=== PATIENT | female | born 1990 | race Caucasian/White ===

== ENCOUNTER 2019-12-13 12:20 | Emergency (ER) | payer BC ==
[2019-12-13] MEDS ORDERED: Carbamide Peroxide 6.5% Otic Soln 15 ML Bottle EARRT ONE (13:00)
--- NOTE | 2019-12-13 13:05 | EDM.PDOC ---
ED HPI GENERAL MEDICAL PROBLEM - General Chief Complaint: General Stated Complaint: NAUSEA,COUGH,FEVER Time Seen by Provider: 12/13/19 12:45 Source of Information: Reports: Patient History Limitations: Reports: No Limitations - History of Present Illness INITIAL COMMENTS - FREE TEXT/NARRATIVE: HISTORY AND PHYSICAL: History of present illness: She is a 29-year-old female who presents to the ED today with concern of sore throat, generalized body aches, and right ear pain over the last 3 to 4 days. Patient states she is approximately 17 weeks in gestation and took Tylenol approximately 3 hours before coming to the ED. Patient denies any vaginal bleeding or lower abdominal cramping. Patient denies any other symptoms or concerns. Patient denies fever, chills, chest pain, shortness of breath, or cough. Denies headache, neck stiff ness, change in vision, syncope, or near syncope. Denies nausea, vomiting, abdominal pain, diarrhea, constipation, or dysuria. Has not noted any blood in urine or stool. Patient has been eating and drinking appropriately. Review of systems: As per history of present illness and below otherwise all systems reviewed and negative. Past medical history: As per history of present illness and as reviewed below otherwise noncontributory. Surgical history: As per history of present illness and as reviewed below otherwise noncontributory. Social history: See social history for further information Family history: As per history of present illness and as reviewed below otherwise noncontributory. Physical exam: General: Patient is alert, oriented, and in no acute distress. Patient sitting comfortably on exam table. HEENT: Atraumatic, normocephalic, pupils equal and reactive bilaterally, negative for conjunctival pallor or scleral icterus, mucous membranes moist, Left TM is normal, unable to visualize the right TM due to cerumen impaction, throat clear, neck supple, nontender, trachea midline. No drooling or trismus noted. No meningeal signs. No hot potato voice noted. Lungs: Clear to auscultation, breath sounds equal bilaterally, chest nontender. Heart: S1S2, regular rate and rhythm without overt murmur Abdomen: Soft, nondistended, nontender. Negative for masses or hepatosplenomegaly. Negative for costovertebral tenderness. Pelvis: Stable nontender. Genitourinary: Deferred. Rectal: Deferred. Skin: Intact, warm, dry. No lesions or rashes noted. Extremities: Atraumatic, negative for cords or calf pain. Neurovascular unremarkable. Neuro: Awake, alert, oriented. Cranial nerves II through XII unremarkable. Cerebellum unremarkable. Motor and sensory unremarkable throughout. Exam nonfocal. Notes: Was unable to visualize the TM even after saline irrigation with Debrox. Did offer Colace with saline irrigation but patient declines at this time. Patient states she would prefer to use Debrox at home to try to soften up the wax and follow-up with an ENT specialist. Voices understanding and is agreeable to plan of care. Denies any further questions or concerns at this time. Diagnostics: Influenza, Strep Therapeutics: Debrox w saline irrigation Prescription: Debrox (sent home with from ED) Impression: Cerumen impaction, right Plan: 1. Use the Debrox drops that have been sent home with you as directed and as discussed. 2. You can use Tylenol as directed for pain and discomfort. This is safe to use in . 3. Follow-up with the ENT specialist and a primary care provider as discussed. Return to the ED as needed and as discussed. Definitive disposition and diagnosis as appropriate pending reevaluation and review of above. - Related Data Allergies Allergy/AdvReac Type Severity Reaction Status Date / Time Sulfa (Sulfonamide Allergy Hives Verified 12/13/19 12:42 Antibiotics) Home Meds: Home Meds Pnv No.95/Ferrous Fum/Folic AC [ Caplet] 1 each PO DAILY 12/13/19 [ History] Past Medical History - Past Health History Medical/Surgical History: Denies Medical/Surgical History - Infectious Disease History Infectious Disease History: Reports: None Social & Family History - Family History Family Medical History: Noncontributory - Tobacco Use Smoking Status *Q: Former Smoker Used Tobacco, but Quit: Yes Month/Year Tobacco Last Used: 2018 - Caffeine Use Caffeine Use: Reports: Coffee - Recreational Drug Use Recreational Drug Use: No ED ROS GENERAL - Review of Systems Review Of Systems: Comprehensive ROS is negative, except as noted in HPI. ED EXAM, GENERAL - Physical Exam Exam: See Below (see dictation) Course - Vital Signs Last Recorded V/S: Last Vital Signs Temp 96.6 F L 12/13/19 12:42 Pulse 64 12/13/19 12:42 Resp 18 12/13/19 12:42 BP 119/67 03/02/20 12:42 Pulse Ox 96 12/13/19 12:42 - Orders/Labs/Meds Orders: Active Orders 24 hr Category Date Time Status CULTURE STREP A CONFIRMATION [] Stat Lab 12/13/19 12:47 Results STREP SCRN A RAPID W CULT CONF [] Stat Lab 12/13/19 12:47 Results Meds: Medications Discontinued Medications Generic Name Dose Route Start Last Admin Trade Name Freq PRN Reason Stop Dose Admin Carbamide Perox/Anhydrous Glycerin 5 ml 12/13/19 13:00 12/13/19 13:21 Debrox 6.5% Otic Soln EARRT 12/13/19 13:01 1 applic ONETIME ONE Administration Departure - Departure Time of Disposition: 14:13 Disposition: Home, Self-Care 01 Clinical Impression: Impacted cerumen of right ear - Discharge Information Referrals: PCP,None [Primary Care Provider] - Forms: ED Department Discharge Additional Instructions: The following information is given to patients seen in the emergency department who are being discharged to home. This information is to outline your options for follow-up care. We provide all patients seen in our emergency department with a follow-up referral. The need for follow-up, as well as the timing and circumstances, are variable depending upon the specifics of your emergency department visit. If you don't have a primary care physician on staff, we will provide you with a referral. We always advise you to contact your personal physician following an emergency department visit to inform them of the circumstance of the visit and for follow-up with them and/or the need for any referrals to a consulting specialist. The emergency department will also refer you to a specialist when appropriate. This referral assures that you have the opportunity for follow-up care with a specialist. All of these measure are taken in an effort to provide you with optimal care, which includes your follow-up. Under all circumstances we always encourage you to contact your private physician who remains a resource for coordinating your care. When calling for follow-up care, please make the office aware that this follow-up is from your recent emergency room visit. If for any reason you are refused follow-up, please contact the [facility] Emergency Department at and asked to speak to the emergency department charge nurse. [facility] Primary Care [address] [place] [address] [facility] [address] [place] [address] [facility] Ears, Nose, and Throat Specialist, Dr. Chava Romero [phone] [address] 1. Use the Debrox drops that have been sent home with you as directed and as discussed. 2. You can use Tylenol as directed for pain and discomfort. This is safe to use in . 3. Follow-up with the ENT specialist and a primary care provider as discussed. Return to the ED as needed and as discussed. Sepsis Event Note - Evaluation Sepsis Screening Result: No Definite Risk - Focused Exam Vital Signs: Vital Signs Temp Pulse Resp BP Pulse Ox 12/13/19 12:42 96.6 F L 64 18 119/67 96 Date Exam was Performed: 12/13/19 Time Exam was Performed: 14:11 - My Orders Last 24 Hours: My Active Orders 12/13/19 12:47 CULTURE STREP A CONFIRMATION [RM] Stat STREP SCRN A RAPID W CULT CONF [RM] Stat - Assessment/Plan Last 24 Hours: My Active Orders 12/13/19 12:47 CULTURE STREP A CONFIRMATION [RM] Stat STREP SCRN A RAPID W CULT CONF [RM] Stat
== END 2019-12-13 14:40 | disposition home or self-care (01) ==
LOC: MW.ED 12:20
DX: H61.21 Impacted cerumen, right ear (principal); Z87.891 Personal history of nicotine dependence; Z88.2 Allergy status to sulfonamides
CPT/HCPCS: 87081; 87804; 87880; 99283; A9270

== ENCOUNTER 2020-05-24 00:10 | Inpatient (IN) | payer BC ==
[2020-05-24] MEDS ORDERED: Sodium Chloride 0.9% 2.5 ML Syringe FLUSH PRN (00:15)
[2020-05-24] MEDS ORDERED: Misoprostol 25 MCG (1/4 of 100 MCG) Tab VAG PRN ×2 (00:15)
[2020-05-24] MEDS ORDERED: Sodium Chloride 0.9% 10 ML Syringe FLUSH PRN (00:15)
[2020-05-24] MEDS ORDERED: Terbutaline 1 MG/ML SDV SUBCUT PRN (00:15)
[2020-05-24] MEDS ORDERED: Methylergonovine 0.2 MG/1 ML Amp IM PRN (00:15)
[2020-05-24] MEDS ORDERED: Oxytocin/0.9 % Sodium Chloride 30 UNIT/500 ML BAG IV SCH ×2 (00:15)
[2020-05-24] MEDS ORDERED: Butorphanol 1 MG/ML SDV IVPUSH PRN (00:15)
[2020-05-24] MEDS ORDERED: Nalbuphine 10 MG/1 ML Vial IVPUSH PRN (00:15)
[2020-05-24] MEDS ORDERED: Water For Irrigation,Sterile 1,000 ML Container IRR PRN (00:15)
[2020-05-24] MEDS ORDERED: Carboprost Tromethamine 250 MCG/1 ML Amp IM PRN (00:15)
[2020-05-24] MEDS ORDERED: Sodium Chloride 0.9% 10 ML SDV IV PRN (00:15)
[2020-05-24] MEDS ORDERED: Tranexamic Acid 1,000 MG in Sodium Chloride 0.9% 100 ML IV PRN (00:15)
[2020-05-24] MEDS ORDERED: Misoprostol 200 MCG Tab PO PRN (00:15)
[2020-05-24] MEDS ORDERED: Lidocaine 1% 50 ML MDV INJECT PRN (00:15)
[2020-05-24] MEDS ORDERED: Lactated Ringers 1,000 ML IV SCH (00:15)
[2020-05-24] MEDS ORDERED: Ondansetron 4 MG/2 ML SDV IVPUSH PRN (00:15)
[2020-05-24] MEDS ORDERED: Calcium Carbonate 500 MG Tab.Chew PO PRN (03:19)
[2020-05-24] MEDS ORDERED: fentaNYL 100 MCG/2 ML SDV ONE (08:14)
[2020-05-24] MEDS ORDERED: Ropivacaine HCl/PF 100 ML ONE (08:14)
[2020-05-24] MEDS ORDERED: Ropivacaine 0.2% PF 2 MG/ML 20 ML SDV ONE (08:14)
--- NOTE | 2020-05-24 08:56 | PCM.PREANE ---
Preanesthetic Assessment - Procedure Proposed Procedure: JS - Anesthesia/Transfusion/Family Hx Anesthesia History: Prior Anesthesia Without Reaction Family History of Anesthesia Reaction: No Transfusion History: No Prior Transfusion(s) Intubation History: Unknown - Review of Systems General: No Symptoms Pulmonary: No Symptoms Cardiovascular: No Symptoms Gastrointestinal: No Symptoms Neurological: No Symptoms Other: Reports: Anxiety - Physical Assessment NPO Status Date: 05/24/20 NPO Status Time: 08:53 (Clear Liquids) Height: 1.6 m Weight: 100.698 kg ASA Class: 2 Mental Status: Alert & Oriented x3 Airway Class: Mallampati = 1 Dentition: Reports: Normal Dentition Thyro-Mental Finger Breadths: 3 Mouth Opening Finger Breadths: 3 ROM/Head Extension: Full Lungs: Clear to Auscultation Cardiovascular: Regular Rate - Lab Values: Laboratory Last Values WBC 6.99 K/uL (4.0-11.0) 05/24/20 00:45 RBC 3.39 M/uL (4.30-5.90) L 05/24/20 00:45 Hgb 12.6 g/dL (12.0-16.0) 05/24/20 00:45 Hct 34.7 % (36.0-46.0) L 05/24/20 00:45 MCV 102.4 fL (80.0-98.0) H 05/24/20 00:45 MCH 37.2 pg (27.0-32.0) H 05/24/20 00:45 MCHC 36.3 g/dL (31.0-37.0) 05/24/20 00:45 RDW Std Deviation 46.3 fl (28.0-62.0) 05/24/20 00:45 RDW Coeff of Vipul 13 % (11.0-15.0) 05/24/20 00:45 Plt Count 123 K/uL (150-400) L 05/24/20 00:45 MPV 10.60 fL (7.40-12.00) 05/24/20 00:45 COVID-19 (UDAY) NEGATIVE (NEGATIVE) 05/24/20 00:50 Blood Type O POSITIVE 08 00:45 Antibody Screen NEGATIVE 05/24/20 00:45 - Allergies Allergies/Adverse Reactions: Allergies Allergy/AdvReac Type Severity Reaction Status Date / Time Sulfa (Sulfonamide Allergy Hives Verified 05/24/20 01:09 Antibiotics) - Blood Blood Available: No Product(s) Available: None - Anesthesia Plan Pre-Op Medication Ordered: None - Acknowledgements Anesthesia Type Planned: Epidural Pt an Appropriate Candidate for the Planned Anesthesia: Yes Alternatives and Risks of Anesthesia Discussed w Pt/Guardian: Yes Pt/Guardian Understands and Agrees with Anesthesia Plan: Yes Additional Comments: , active labor. Pain 10/10. Anxious. 8+ cm dilated. Discussed, ? answered, aware of effectiveness due to late labor stage. Accepts, wishes to proceed. PreAnesthesia Questionnaire - Past Health History Medical/Surgical History: Denies Medical/Surgical History UNDERCOVER COP History: Reports: Other (See Below) Other OB/BYN History: [facility] Psychiatric History: Reports: Anxiety, Depression - Infectious Disease History Infectious Disease History: Reports: None - SUBSTANCE USE Smoking Status *Q: Former Smoker Second Hand Smoke Exposure: No Recreational Drug Use History: No - HOME MEDS Home Medications: Home Meds Pnv No.95/Ferrous Fum/Folic AC [ Caplet] 1 each PO DAILY 12/13/19 [History] Ascorbic Acid [Vitamin C] 1,000 mg PO 05/24/20 [History] - CURRENT (IN HOUSE) MEDS Current Meds: Current Medications Butorphanol Tartrate (Stadol) 1 mg IVPUSH Q1H PRN PRN Reason: Pain Calcium Carbonate/Glycine (Tums) 1,000 mg PO Q2HR PRN PRN Reason: Indigestion Last Admin: 05/24/20 05:17 Dose: 1,000 mg Documented by: Carboprost Tromethamine (Hemabate Ds) 250 mcg IM ASDIRECTED PRN PRN Reason: Post Hemorrhage Oxytocin/Sodium Chloride (Oxytocin 30 Unit/500 Ml-Ns) 30 unit in 500 mls @ 999 mls/hr IV TITRATE MARCELA Tranexamic Acid 1,000 mg/ (Sodium Chloride) 110 mls @ 660 mls/hr IV ONETIME PRN PRN Reason: Bleeding Oxytocin/Sodium Chloride (Oxytocin 30 Unit/500 Ml-Ns) 30 unit in 500 mls @ 2 mls/hr IV TITRATE MARCELA; Protocol Lactated Ringer's (Ringers, Lactated) 1,000 mls @ 150 mls/hr IV ASDIRECTED MARCELA Lidocaine HCl (Xylocaine 1%) 50 ml INJECT ONETIME PRN PRN Reason: Laceration repair Methylergonovine Maleate (Methergine) 0.2 mg IM ASDIRECTED PRN PRN Reason: Post Hemorrhage Misoprostol (Cytotec) 200 mcg PO ONETIME PRN PRN Reason: Post Hemorrhage Misoprostol (Cytotec) 25 mcg VAG ONETIME PRN PRN Reason: Cervical Ripening Last Admin: 05/24/20 01:56 Dose: 25 mcg Documented by: Misoprostol (Cytotec) 25 mcg VAG Q4H PRN PRN Reason: Cervical Ripening Last Admin: 05/24/20 05:58 Dose: 25 mcg Documented by: Nalbuphine HCl (Nubain) 10 mg IVPUSH Q1H PRN PRN Reason: Pain (severe 7-10) Ondansetron HCl (Zofran) 4 mg IVPUSH Q6H PRN PRN Reason: Nausea/Vomiting Sodium Chloride (Saline Flush) 10 ml FLUSH ASDIRECTED PRN PRN Reason: Keep Vein Open Sodium Chloride (Saline Flush) 2.5 ml FLUSH ASDIRECTED PRN PRN Reason: Keep Vein Open Sodium Chloride (Normal Saline) 10 ml IV ASDIRECTED PRN PRN Reason: IV Use Sterile Water (Sterile Water For Irrigation) 1,000 ml IRR ASDIRECTED PRN PRN Reason: delivery Terbutaline Sulfate (Brethine) 0.25 mg SUBCUT ASDIRECTED PRN PRN Reason: Tacysystole Discontinued Medications Fentanyl (Sublimaze) Confirm Administered Dose 100 mcg .ROUTE .STK-MED ONE Stop: 05/24/20 08:15 Ropivacaine (Naropin 0.2%) Confirm Administered Dose 100 mls @ as directed .ROUTE .STK-MED ONE Stop: 05/24/20 08:15 Ropivacaine (Naropin 0.2%) Confirm Administered Dose 20 ml .ROUTE .STK-MED ONE Stop: 05/24/20 08:15
[2020-05-24] MEDS ORDERED: Ibuprofen 400 MG Tab PO PRN (09:40)
[2020-05-24] MEDS ORDERED: Docusate Sodium 100 MG Cap PO PRN (09:40)
[2020-05-24] MEDS ORDERED: Bisacodyl 10 MG Supp RECTAL PRN (09:40)
[2020-05-24] MEDS ORDERED: Acetaminophen 500 MG Tab PO PRN (09:40)
[2020-05-24] MEDS ORDERED: oxyCODONE 5 MG Tab PO PRN (09:40)
[2020-05-24] MEDS ORDERED: Lanolin 100% Cream 7 GM Tube TOP PRN (09:40)
--- NOTE | 2020-05-24 09:47 | PCM.DEL ---
<Nalini Fowler A - Last Filed: 05/24/20 09:41> L & D Note - General Info Date of Service: 05/24/20 Mother's Due Date: 05/22/20 - Delivery Note Cervical Ripening Method: Misoprostil Delivery Outcome: Livebirth Infant Delivery Method: Spontaneous Vaginal Delivery-Single Presentation: Left Occiput Transverse (LOT) Nuchal Cord: Present (x1), Reduced Anesthesia Type: Epidural Anesthetic: Lidocaine (Xylocaine) 1% Plain Local Anesthetic Volume: Other (10cc) Episiotomy Type: None Laceration: Vaginal (x2) Suture type: Vicryl Suture size: 3-0 Placenta: Intact, Spontaneous Cord: 3 Vessels Estimated Blood Loss: 300 Resuscitation Needed: No : Bulb Syringe Provider: Maryellen Ashraf Score 1 min: 8 Score 5 min: 9 Second Stage Interventions: Reports: Pushing Effectively Delivery Comments (Free Text/Narrative):: Liveborn male infant born via at 0854 weighing 4700g APGARs 8 and 9 over 2 small vaginal lacerations approximated, progressing well, no known complications - Patient Data Weight - Most Recent: 222 lb Lab Results Last 24 Hours: Laboratory Results - last 24 hr 05/24/20 05/24/20 05/24/20 Range/Units 00:45 00:45 00:50 WBC 6.99 (4.0-11.0) K/uL RBC 3.39 L (4.30-5.90) M/uL Hgb 12.6 (12.0-16.0) g/dL Hct 34.7 L (36.0-46.0) % MCV 102.4 H (80.0-98.0) fL MCH 37.2 H (27.0-32.0) pg MCHC 36.3 (31.0-37.0) g/dL RDW Std Deviation 46.3 (28.0-62.0) fl RDW Coeff of Vipul 13 (11.0-15.0) % Plt Count 123 L (150-400) K/uL MPV 10.60 (7.40-12.00) fL COVID-19 (UDAY) NEGATIVE (NEGATIVE) Blood Type O POSITIVE Antibody Screen NEGATIVE Med Orders - Current: Current Medications Butorphanol Tartrate (Stadol) 1 mg IVPUSH Q1H PRN PRN Reason: Pain Calcium Carbonate/Glycine (Tums) 1,000 mg PO Q2HR PRN PRN Reason: Indigestion Last Admin: 05/24/20 05:17 Dose: 1,000 mg Documented by: Carboprost Tromethamine (Hemabate Ds) 250 mcg IM ASDIRECTED PRN PRN Reason: Post Hemorrhage Oxytocin/Sodium Chloride (Oxytocin 30 Unit/500 Ml-Ns) 30 unit in 500 mls @ 999 mls/hr IV TITRATE MARCELA Tranexamic Acid 1,000 mg/ (Sodium Chloride) 110 mls @ 660 mls/hr IV ONETIME PRN PRN Reason: Bleeding Oxytocin/Sodium Chloride (Oxytocin 30 Unit/500 Ml-Ns) 30 unit in 500 mls @ 2 mls/hr IV TITRATE MARCELA; Protocol Lactated Ringer's (Ringers, Lactated) 1,000 mls @ 150 mls/hr IV ASDIRECTED MARCELA Lidocaine HCl (Xylocaine 1%) 50 ml INJECT ONETIME PRN PRN Reason: Laceration repair Methylergonovine Maleate (Methergine) 0.2 mg IM ASDIRECTED PRN PRN Reason: Post Hemorrhage Misoprostol (Cytotec) 200 mcg PO ONETIME PRN PRN Reason: Post Hemorrhage Misoprostol (Cytotec) 25 mcg VAG ONETIME PRN PRN Reason: Cervical Ripening Last Admin: 05/24/20 01:56 Dose: 25 mcg Documented by: Misoprostol (Cytotec) 25 mcg VAG Q4H PRN PRN Reason: Cervical Ripening Last Admin: 05/24/20 05:58 Dose: 25 mcg Documented by: Nalbuphine HCl (Nubain) 10 mg IVPUSH Q1H PRN PRN Reason: Pain (severe 7-10) Ondansetron HCl (Zofran) 4 mg IVPUSH Q6H PRN PRN Reason: Nausea/Vomiting Sodium Chloride (Saline Flush) 10 ml FLUSH ASDIRECTED PRN PRN Reason: Keep Vein Open Sodium Chloride (Saline Flush) 2.5 ml FLUSH ASDIRECTED PRN PRN Reason: Keep Vein Open Sodium Chloride (Normal Saline) 10 ml IV ASDIRECTED PRN PRN Reason: IV Use Sterile Water (Sterile Water For Irrigation) 1,000 ml IRR ASDIRECTED PRN PRN Reason: delivery Terbutaline Sulfate (Brethine) 0.25 mg SUBCUT ASDIRECTED PRN PRN Reason: Tacysystole Discontinued Medications Fentanyl (Sublimaze) Confirm Administered Dose 100 mcg .ROUTE .STK-MED ONE Stop: 05/24/20 08:15 Ropivacaine (Naropin 0.2%) Confirm Administered Dose 100 mls @ as directed .ROUTE .STK-MED ONE Stop: 05/24/20 08:15 Ropivacaine (Naropin 0.2%) Confirm Administered Dose 20 ml .ROUTE .STK-MED ONE Stop: 05/24/20 08:15 <Shaw Jordan - Last Filed: 05/24/20 22:03> Vacuum Extractor Progress Note - Alternative Labor Strategies Considered Alternative Labor Strategies Considered:: Reports: No - General Info Date of Service: 05/24/20 - Patient Data Vitals - Most Recent: Last Vital Signs Temp 35.9 C L 05/24/20 19:59 Pulse 68 05/24/20 19:59 Resp 17 05/24/20 19:59 BP 122/58 L 05/24/20 19:59 Pulse Ox 97 05/24/20 19:59 Lab Results Last 24 Hours: Laboratory Results - last 24 hr 05/24/20 05/24/20 05/24/20 Range/Units 00:45 00:45 00:50 WBC 6.99 (4.0-11.0) K/uL RBC 3.39 L (4.30-5.90) M/uL Hgb 12.6 (12.0-16.0) g/dL Hct 34.7 L (36.0-46.0) % MCV 102.4 H (80.0-98.0) fL MCH 37.2 H (27.0-32.0) pg MCHC 36.3 (31.0-37.0) g/dL RDW Std Deviation 46.3 (28.0-62.0) fl RDW Coeff of Vipul 13 (11.0-15.0) % Plt Count 123 L (150-400) K/uL MPV 10.60 (7.40-12.00) fL COVID-19 (UDAY) NEGATIVE (NEGATIVE) Blood Type O POSITIVE Antibody Screen NEGATIVE Med Orders - Current: Current Medications Acetaminophen (Tylenol Extra Strength) 500 mg PO Q4H PRN PRN Reason: Pain Acetaminophen (Tylenol Extra Strength) 1,000 mg PO Q4H PRN PRN Reason: Pain Last Admin: 05/24/20 17:48 Dose: 1,000 mg Documented by: Benzocaine/Menthol (Dermoplast Pain Relief 20%-0.5% Reliance) 78 gm TOP ASDIRECTED PRN PRN Reason: Perineal Comfort Measure Last Admin: 05/24/20 13:26 Dose: 1 canister Documented by: Bisacodyl (Dulcolax) 10 mg RECTAL ONETIME PRN PRN Reason: Constipation Butorphanol Tartrate (Stadol) 1 mg IVPUSH Q1H PRN PRN Reason: Pain Calcium Carbonate/Glycine (Tums) 1,000 mg PO Q2HR PRN PRN Reason: Indigestion Last Admin: 05/24/20 05:17 Dose: 1,000 mg Documented by: Carboprost Tromethamine (Hemabate Ds) 250 mcg IM ASDIRECTED PRN PRN Reason: Post Hemorrhage Docusate Sodium (Colace) 100 mg PO BID PRN PRN Reason: Constipation Last Admin: 05/24/20 13:33 Dose: 100 mg Documented by: Emollient Ointment (Lansinoh Hpa) 0 gm TOP ASDIRECTED PRN PRN Reason: Sore Nipples Last Admin: 05/24/20 13:25 Dose: 1 tube Documented by: Oxytocin/Sodium Chloride (Oxytocin 30 Unit/500 Ml-Ns) 30 unit in 500 mls @ 999 mls/hr IV TITRATE MARCELA Last Admin: 05/24/20 08:58 Dose: 999 mls/hr Documented by: Tranexamic Acid 1,000 mg/ (Sodium Chloride) 110 mls @ 660 mls/hr IV ONETIME PRN PRN Reason: Bleeding Oxytocin/Sodium Chloride (Oxytocin 30 Unit/500 Ml-Ns) 30 unit in 500 mls @ 2 mls/hr IV TITRATE [facility]; Protocol Lactated Ringer's (Ringers, Lactated) 1,000 mls @ 150 mls/hr IV ASDIRECTED MARCELA Last Admin: 05/24/20 07:50 Dose: 150 mls/hr Documented by: Ibuprofen (Motrin) 400 mg PO Q4H PRN PRN Reason: Pain Ibuprofen (Motrin) 800 mg PO Q6H PRN PRN Reason: Pain Last Admin: 05/24/20 20:17 Dose: 800 mg Documented by: Lidocaine HCl (Xylocaine 1%) 50 ml INJECT ONETIME PRN PRN Reason: Laceration repair Last Admin: 05/24/20 13:21 Dose: 50 ml Documented by: Methylergonovine Maleate (Methergine) 0.2 mg IM ASDIRECTED PRN PRN Reason: Post Hemorrhage Misoprostol (Cytotec) 200 mcg PO ONETIME PRN PRN Reason: Post Hemorrhage Misoprostol (Cytotec) 25 mcg VAG ONETIME PRN PRN Reason: Cervical Ripening Last Admin: 05/24/20 01:56 Dose: 25 mcg Documented by: Misoprostol (Cytotec) 25 mcg VAG Q4H PRN PRN Reason: Cervical Ripening Last Admin: 05/24/20 05:58 Dose: 25 mcg Documented by: Nalbuphine HCl (Nubain) 10 mg IVPUSH Q1H PRN PRN Reason: Pain (severe 7-10) Ondansetron HCl (Zofran) 4 mg IVPUSH Q6H PRN PRN Reason: Nausea/Vomiting Oxycodone HCl (Oxycodone) 5 mg PO Q2H PRN PRN Reason: Pain Sodium Chloride (Saline Flush) 10 ml FLUSH ASDIRECTED PRN PRN Reason: Keep Vein Open Sodium Chloride (Saline Flush) 2.5 ml FLUSH ASDIRECTED PRN PRN Reason: Keep Vein Open Sodium Chloride (Normal Saline) 10 ml IV ASDIRECTED PRN PRN Reason: IV Use Sterile Water (Sterile Water For Irrigation) 1,000 ml IRR ASDIRECTED PRN PRN Reason: delivery Terbutaline Sulfate (Brethine) 0.25 mg SUBCUT ASDIRECTED PRN PRN Reason: Tacysystole Witch Ewelina (Tucks) 1 pad TOP ASDIRECTED PRN PRN Reason: comfort care Last Admin: 05/24/20 13:25 Dose: 1 tub Documented by: Discontinued Medications Fentanyl (Sublimaze) Confirm Administered Dose 100 mcg .ROUTE .STK-MED ONE Stop: 05/24/20 08:15 Ropivacaine (Naropin 0.2%) Confirm Administered Dose 100 mls @ as directed .ROUTE .STK-MED ONE Stop: 05/24/20 08:15 Ropivacaine (Naropin 0.2%) Confirm Administered Dose 20 ml .ROUTE .STK-MED ONE Stop: 05/24/20 08:15 - Problem List Review Problem List Initiated/Reviewed/Updated: Yes - My Orders Last 24 Hours: My Active Orders 05/24/20 09:40 Patient Status [ADT] Routine May Shower [RC] ASDIRECTED Up ad Ami [RC] ASDIRECTED Vital Signs [RC] PER UNIT ROUTINE Acetaminophen [Tylenol Extra Strength] 1,000 mg PO Q4H PRN Acetaminophen [Tylenol Extra Strength] 500 mg PO Q4H PRN Benzocaine/Menthol [Dermoplast Pain Relief 20%-0.5% Reliance] 78 gm TOP ASDIRECTED PRN Docusate Sodium [Colace] 100 mg PO BID PRN Ibuprofen [Motrin] 400 mg PO Q4H PRN Ibuprofen [Motrin] 800 mg PO Q6H PRN Lanolin [Lansinoh HPA] See Dose Instructions TOP ASDIRECTED PRN bisacodyL [Dulcolax] 10 mg RECTAL ONETIME PRN oxyCODONE 5 mg PO Q2H PRN witch Ewelina [Tucks] 1 pad TOP ASDIRECTED PRN Assess Lochia [WOMSER] Per Unit Routine Assess Uterine Involution [WOMSER] Per Unit Routine Peripheral IV Discontinue [OM.PC] Routine 05/25/20 05:11 HEMOGLOBIN/HEMATOCRIT,HH [HEME] Timed - Assessment Assessment:: 29yo @ 39w2d PPD 0 s/p , complicated by gestational thromobocytopenia. - Plan Plan:: Routine care.
--- NOTE | 2020-05-24 10:32 | PCM.PREANE ---
Preanesthetic Assessment - Procedure Proposed Procedure: JS - Anesthesia/Transfusion/Family Hx Anesthesia History: Prior Anesthesia Without Reaction Family History of Anesthesia Reaction: No Transfusion History: No Prior Transfusion(s) Intubation History: Unknown - Review of Systems General: No Symptoms Pulmonary: No Symptoms Cardiovascular: No Symptoms Gastrointestinal: No Symptoms Neurological: No Symptoms Other: Reports: Anxiety - Physical Assessment NPO Status Date: 05/24/20 NPO Status Time: 08:53 (Clear Liquids) Height: 1.6 m Weight: 100.698 kg ASA Class: 2 Mental Status: Alert & Oriented x3 Airway Class: Mallampati = 2 Dentition: Reports: Normal Dentition ROM/Head Extension: Full Lungs: Clear to Auscultation Cardiovascular: Regular Rate - Lab Values: Laboratory Last Values WBC 6.99 K/uL (4.0-11.0) 05/24/20 00:45 RBC 3.39 M/uL (4.30-5.90) L 08 00:45 Hgb 12.6 g/dL (12.0-16.0) 05/24/20 00:45 Hct 34.7 % (36.0-46.0) L 05/24/20 00:45 MCV 102.4 fL (80.0-98.0) H 05/24/20 00:45 MCH 37.2 pg (27.0-32.0) H 05/24/20 00:45 MCHC 36.3 g/dL (31.0-37.0) 08 00:45 RDW Std Deviation 46.3 fl (28.0-62.0) 05/24/20 00:45 RDW Coeff of Vipul 13 % (11.0-15.0) 05/24/20 00:45 Plt Count 123 K/uL (150-400) L 05/24/20 00:45 MPV 10.60 fL (7.40-12.00) 05/24/20 00:45 COVID-19 (UDAY) NEGATIVE (NEGATIVE) 05/24/20 00:50 Blood Type O POSITIVE 05/24/20 00:45 Antibody Screen NEGATIVE 05/24/20 00:45 - Allergies Allergies/Adverse Reactions: Allergies Allergy/AdvReac Type Severity Reaction Status Date / Time Sulfa (Sulfonamide Allergy Hives Verified 08/12/20 01:09 Antibiotics) - Blood Blood Available: No Product(s) Available: None - Anesthesia Plan Pre-Op Medication Ordered: None - Acknowledgements Anesthesia Type Planned: Epidural Pt an Appropriate Candidate for the Planned Anesthesia: Yes Alternatives and Risks of Anesthesia Discussed w Pt/Guardian: Yes Pt/Guardian Understands and Agrees with Anesthesia Plan: Yes PreAnesthesia Questionnaire - Past Health History Medical/Surgical History: Denies 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 (See Below) Other OB/BYN History: [facility] Psychiatric History: Reports: Anxiety, Depression - Infectious Disease History Infectious Disease History: Reports: None - SUBSTANCE USE Smoking Status *Q: Former Smoker Second Hand Smoke Exposure: No Recreational Drug Use History: No - HOME MEDS Home Medications: Home Meds Pnv No.95/Ferrous Fum/Folic AC [ Caplet] 1 each PO DAILY 12/13/19 [History] Ascorbic Acid [Vitamin C] 1,000 mg PO 05/24/20 [History] - CURRENT (IN HOUSE) MEDS Current Meds: Current Medications Acetaminophen (Tylenol Extra Strength) 500 mg PO Q4H PRN PRN Reason: Pain Acetaminophen (Tylenol Extra Strength) 1,000 mg PO Q4H PRN PRN Reason: Pain Benzocaine/Menthol (Dermoplast Pain Relief 20%-0.5% [place]) 78 gm TOP ASDIRECTED PRN PRN Reason: Perineal Comfort Measure Bisacodyl (Dulcolax) 10 mg RECTAL ONETIME PRN PRN Reason: Constipation Butorphanol Tartrate (Stadol) 1 mg IVPUSH Q1H PRN PRN Reason: Pain Calcium Carbonate/Glycine (Tums) 1,000 mg PO Q2HR PRN PRN Reason: Indigestion Last Admin: 05/24/20 05:17 Dose: 1,000 mg Documented by: Carboprost Tromethamine (Hemabate Ds) 250 mcg IM ASDIRECTED PRN PRN Reason: Post Hemorrhage Docusate Sodium (Colace) 100 mg PO BID PRN PRN Reason: Constipation Emollient Ointment (Lansinoh Hpa) 0 gm TOP ASDIRECTED PRN PRN Reason: Sore Nipples Oxytocin/Sodium Chloride (Oxytocin 30 Unit/500 Ml-Ns) 30 unit in 500 mls @ 999 mls/hr IV TITRATE MARCELA Tranexamic Acid 1,000 mg/ (Sodium Chloride) 110 mls @ 660 mls/hr IV ONETIME PRN PRN Reason: Bleeding Oxytocin/Sodium Chloride (Oxytocin 30 Unit/500 Ml-Ns) 30 unit in 500 mls @ 2 mls/hr IV TITRATE MARCELA; Protocol Lactated Ringer's (Ringers, Lactated) 1,000 mls @ 150 mls/hr IV ASDIRECTED MARCELA Ibuprofen (Motrin) 400 mg PO Q4H PRN PRN Reason: Pain Ibuprofen (Motrin) 800 mg PO Q6H PRN PRN Reason: Pain Lidocaine HCl (Xylocaine 1%) 50 ml INJECT ONETIME PRN PRN Reason: Laceration repair Methylergonovine Maleate (Methergine) 0.2 mg IM ASDIRECTED PRN PRN Reason: Post Hemorrhage Misoprostol (Cytotec) 200 mcg PO ONETIME PRN PRN Reason: Post Hemorrhage Misoprostol (Cytotec) 25 mcg VAG ONETIME PRN PRN Reason: Cervical Ripening Last Admin: 05/24/20 01:56 Dose: 25 mcg Documented by: Misoprostol (Cytotec) 25 mcg VAG Q4H PRN PRN Reason: Cervical Ripening Last Admin: 05/24/20 05:58 Dose: 25 mcg Documented by: Nalbuphine HCl (Nubain) 10 mg IVPUSH Q1H PRN PRN Reason: Pain (severe 7-10) Ondansetron HCl (Zofran) 4 mg IVPUSH Q6H PRN PRN Reason: Nausea/Vomiting Oxycodone HCl (Oxycodone) 5 mg PO Q2H PRN PRN Reason: Pain Sodium Chloride (Saline Flush) 10 ml FLUSH ASDIRECTED PRN PRN Reason: Keep Vein Open Sodium Chloride (Saline Flush) 2.5 ml FLUSH ASDIRECTED PRN PRN Reason: Keep Vein Open Sodium Chloride (Normal Saline) 10 ml IV ASDIRECTED PRN PRN Reason: IV Use Sterile Water (Sterile Water For Irrigation) 1,000 ml IRR ASDIRECTED PRN PRN Reason: delivery Terbutaline Sulfate (Brethine) 0.25 mg SUBCUT ASDIRECTED PRN PRN Reason: Tacysystole Witch Ewelina (Tucks) 1 pad TOP ASDIRECTED PRN PRN Reason: comfort care Discontinued Medications Fentanyl (Sublimaze) Confirm Administered Dose 100 mcg .ROUTE .STK-MED ONE Stop: 05/24/20 08:15 Ropivacaine (Naropin 0.2%) Confirm Administered Dose 100 mls @ as directed .ROUTE .STK-MED ONE Stop: 05/24/20 08:15 Ropivacaine (Naropin 0.2%) Confirm Administered Dose 20 ml .ROUTE .STK-MED ONE Stop: 05/24/20 08:15
[2020-05-24] MEDS: Witch Hazel Medicated Pads 40/Jar TOP PRN (13:25)
--- NOTE | 2020-05-24 13:25 | OR ---
SURGEON: Shaw Jordan MD DATE OF PROCEDURE: 05/24/2020 INDICATION FOR PROCEDURE: A 29-year-old, G4, P 2-0-1-2, at 39 weeks and 2 days admitted for induction of labor. complicated by gestational thrombocytopenia that has been stable, platelets ranging from 120 to 130s. She is GBS negative. She received 2 doses of Cytotec for induction of labor and started having strong regular contractions. She received an epidural with good pain relief. She quickly progressed to fully dilated and +1 station with urge to push. PREOPERATIVE DIAGNOSES: 1. Bone intrauterine at 39 weeks and 2 days. 2. Gestational thrombocytopenia. POSTOPERATIVE DIAGNOSES: 1. Bone intrauterine at 39 weeks and 2 days. 2. Gestational thrombocytopenia. PROCEDURE PERFORMED: Normal spontaneous vaginal delivery, repair of vaginal laceration. ANESTHESIA: Epidural. ANESTHESIOLOGIST: FINDINGS: Viable male , score of 8 and 9, weight of 4700g. Nuchal cord x1. DESCRIPTION OF PROCEDURE: The patient was AROM'd with clear fluid, then began pushing with contractions. She pushed for approximately 5 minutes with good descent. head delivered in OA presentation over intact perineum. The shoulders did not spontaneously rotate and was manually rotated counterclockwise. The head restituted LOT. Tight nuchal cord was noted x1. The anterior shoulder delivered easily followed by posterior shoulder and remaining body. The nuchal cord was reduced after delivery. The baby was placed on maternal chest and evaluated by awaiting nursery staff. The baby was pink, crying, and moving all extremities shortly after delivery. The umbilical cord was clamped and cut after 60 seconds and no longer pulsating. The placenta did not initially deliver. Therefore, attention was turned to examining of the perineum. Two vaginal lacerations were noted. 10 mL of 1% lidocaine without epinephrine was injected for local anesthesia. The lacerations were repaired with 3-0 Vicryl in usual fashion. Hemostasis was confirmed. The placenta then delivered with fundal massage. It was intact with 3-vessel cord. The bleeding was light and the fundus was firm and at the umbilicus. The patient tolerated the procedure well, was given care instructions. CLEMENTINE / RENU /[id number] [facility] SOUTHAMPTON HOSPITALRaimundo
[2020-05-24] MEDS: Benzocaine/Menthol 20%-0.5% Spray 78 GM Cannister TOP PRN (13:26)
[2020-05-24] MEDS: Ibuprofen 800 MG Tab PO PRN ×2 (13:31→20:17)
[2020-05-24] MEDS: Acetaminophen 500 MG Tab PO PRN ×2 (13:32→17:48)
--- NOTE | 2020-05-24 13:47 | PCM48HPAN ---
Post Anesthesia Note - EVALUATION WITHIN 48HRS OF ANESTHETIC Vital Signs in Normal Range: Yes Patient Participated in Evaluation: Yes Respiratory Function Stable: Yes Airway Patent: Yes Cardiovascular Function Stable: Yes Hydration Status Stable: Yes Pain Control Satisfactory: Yes Nausea and Vomiting Control Satisfactory: Yes Mental Status Recovered: Yes - COMMENTS/OBSERVATIONS Free Text/Narrative:: Doing well. No problems noted post.
--- NOTE | 2020-05-24 14:37 | PCM.SN.2 ---
- Free Text/Narrative Note: Visited earlier, doing well. Now complains of body itching. Instructed nurse it should resolve in near future, if no Nubain 2.5 mg IV ordered.
[2020-05-25] MEDS: Ibuprofen 800 MG Tab PO PRN ×3 (02:12→14:36)
[2020-05-25] MEDS: Acetaminophen 500 MG Tab PO PRN ×3 (02:13→14:35)
--- NOTE | 2020-05-25 08:08 | PCM.PNPP ---
<Nalini Fowler - Last Filed: 05/25/20 08:02> - General Info Date of Service: 05/25/20 Admission Dx/Problem (Free Text): 29 yo at 39/2 weeks, IOL for gestational thrombocytopenia Subjective Update: Patient reports abdominal tenderness when she is walking and moving. Pain is rated at 4/10 and occurs only with movement. It is localized to the periumbilical region. She is ambulating, urinating, passing gas. Lochia has been moderate, rubra color, she has changed 5-6 pads since delivery. Has not had a bowel movement yet. okay, baby is figuring out latching. Functional Status: Reports: Tolerating Diet, Ambulating, Urinating Pain Score: 4 - Review of Systems General: Denies: Fever, Weakness, Fatigue, Malaise, Chills HEENT: Reports: No Symptoms Pulmonary: Reports: No Symptoms Cardiovascular: Reports: No Symptoms Gastrointestinal: Reports: Abdominal Pain (Periumbilical ). Denies: Decreased Appetite, Nausea, Vomiting Genitourinary: Reports: No Symptoms Musculoskeletal: Reports: No Symptoms Skin: Reports: No Symptoms Neurological: Reports: No Symptoms Psychiatric: Reports: No Symptoms - General Info Date of Service: 05/25/20 - Patient Data Vital Signs - Most Recent: Last Vital Signs Temp 98.2 F 05/25/20 04:29 Pulse 63 05/25/20 04:29 Resp 17 05/25/20 04:29 BP 115/75 05/25/20 04:29 Pulse Ox 95 05/25/20 04:29 Weight - Most Recent: 100.698 kg Lab Results - Last 24 Hours: Laboratory Results - last 24 hr 05/25/20 Range/Units 05:47 WBC 8.41 (4.0-11.0) K/uL RBC 3.21 L (4.30-5.90) M/uL Hgb 11.6 L (12.0-16.0) g/dL Hct 33.7 L (36.0-46.0) % MCV 105.0 H (80.0-98.0) fL MCH 36.1 H (27.0-32.0) pg MCHC 34.4 (31.0-37.0) g/dL RDW Std Deviation 46.1 (28.0-62.0) fl RDW Coeff of Vipul 13 (11.0-15.0) % Plt Count 103 L (150-400) K/uL MPV 10.50 (7.40-12.00) fL Med Orders - Current: Current Medications Acetaminophen (Tylenol Extra Strength) 500 mg PO Q4H PRN PRN Reason: Pain Acetaminophen (Tylenol Extra Strength) 1,000 mg PO Q4H PRN PRN Reason: Pain Last Admin: 05/25/20 02:13 Dose: 1,000 mg Documented by: Benzocaine/Menthol (Dermoplast Pain Relief 20%-0.5% [place]) 78 gm TOP ASDIRECTED PRN PRN Reason: Perineal Comfort Measure Last Admin: 05/24/20 13:26 Dose: 1 canister Documented by: Bisacodyl (Dulcolax) 10 mg RECTAL ONETIME PRN PRN Reason: Constipation Butorphanol Tartrate (Stadol) 1 mg IVPUSH Q1H PRN PRN Reason: Pain Calcium Carbonate/Glycine (Tums) 1,000 mg PO Q2HR PRN PRN Reason: Indigestion Last Admin: 05/24/20 05:17 Dose: 1,000 mg Documented by: Carboprost Tromethamine (Hemabate Ds) 250 mcg IM ASDIRECTED PRN PRN Reason: Post Hemorrhage Docusate Sodium (Colace) 100 mg PO BID PRN PRN Reason: Constipation Last Admin: 05/24/20 13:33 Dose: 100 mg Documented by: Emollient Ointment (Lansinoh Hpa) 0 gm TOP ASDIRECTED PRN PRN Reason: Sore Nipples Last Admin: 05/24/20 13:25 Dose: 1 tube Documented by: Oxytocin/Sodium Chloride (Oxytocin 30 Unit/500 Ml-Ns) 30 unit in 500 mls @ 999 mls/hr IV TITRATE MARCELA Last Admin: 05/24/20 08:58 Dose: 999 mls/hr Documented by: Tranexamic Acid 1,000 mg/ (Sodium Chloride) 110 mls @ 660 mls/hr IV ONETIME PRN PRN Reason: Bleeding Oxytocin/Sodium Chloride (Oxytocin 30 Unit/500 Ml-Ns) 30 unit in 500 mls @ 2 mls/hr IV TITRATE MARCELA; Protocol Lactated Ringer's (Ringers, Lactated) 1,000 mls @ 150 mls/hr IV ASDIRECTED MARCELA Last Admin: 05/24/20 07:50 Dose: 150 mls/hr Documented by: Ibuprofen (Motrin) 400 mg PO Q4H PRN PRN Reason: Pain Ibuprofen (Motrin) 800 mg PO Q6H PRN PRN Reason: Pain Last Admin: 05/25/20 02:12 Dose: 800 mg Documented by: Lidocaine HCl (Xylocaine 1%) 50 ml INJECT ONETIME PRN PRN Reason: Laceration repair Last Admin: 05/24/20 13:21 Dose: 50 ml Documented by: Methylergonovine Maleate (Methergine) 0.2 mg IM ASDIRECTED PRN PRN Reason: Post Hemorrhage Misoprostol (Cytotec) 200 mcg PO ONETIME PRN PRN Reason: Post Hemorrhage Misoprostol (Cytotec) 25 mcg VAG ONETIME PRN PRN Reason: Cervical Ripening Last Admin: 05/24/20 01:56 Dose: 25 mcg Documented by: Misoprostol (Cytotec) 25 mcg VAG Q4H PRN PRN Reason: Cervical Ripening Last Admin: 05/24/20 05:58 Dose: 25 mcg Documented by: Nalbuphine HCl (Nubain) 10 mg IVPUSH Q1H PRN PRN Reason: Pain (severe 7-10) Ondansetron HCl (Zofran) 4 mg IVPUSH Q6H PRN PRN Reason: Nausea/Vomiting Oxycodone HCl (Oxycodone) 5 mg PO Q2H PRN PRN Reason: Pain Sodium Chloride (Saline Flush) 10 ml FLUSH ASDIRECTED PRN PRN Reason: Keep Vein Open Sodium Chloride (Saline Flush) 2.5 ml FLUSH ASDIRECTED PRN PRN Reason: Keep Vein Open Sodium Chloride (Normal Saline) 10 ml IV ASDIRECTED PRN PRN Reason: IV Use Sterile Water (Sterile Water For Irrigation) 1,000 ml IRR ASDIRECTED PRN PRN Reason: delivery Terbutaline Sulfate (Brethine) 0.25 mg SUBCUT ASDIRECTED PRN PRN Reason: Tacysystole Witch Ewelina (Tucks) 1 pad TOP ASDIRECTED PRN PRN Reason: comfort care Last Admin: 05/24/20 13:25 Dose: 1 tub Documented by: Discontinued Medications Fentanyl (Sublimaze) Confirm Administered Dose 100 mcg .ROUTE .STK-MED ONE Stop: 05/24/20 08:15 Ropivacaine (Naropin 0.2%) Confirm Administered Dose 100 mls @ as directed .ROUTE .STK-MED ONE Stop: 05/24/20 08:15 Ropivacaine (Naropin 0.2%) Confirm Administered Dose 20 ml .ROUTE .STK-MED ONE Stop: 05/24/20 08:15 - Interaction Infant Disposition, : at Bedside Interaction: Holding Infant Feeding: Attempted ; Nursed Fair/Poor (Baby is figuring out latching ) Support Person: Significant Other - Recovery Exam Fundal Tone: Firm Fundal Level: At Umbilicus Fundal Placement: Midline Lochia Amount: Moderate Lochia Color: Rubra/Red Perineum Description: Edematous Episiotomy/Laceration: Approximated Bladder Status: Voiding Urinary Elimination: Voided - Exam General: Alert, Oriented HEENT: Mucous Membr. Moist/[place]. No: Scleral Icterus Neck: Supple, Trachea Midline, No JVD Lungs: Clear to Auscultation, Normal Respiratory Effort. No: Crackles, Wheezing Cardiovascular: Regular Rate, Regular Rhythm. No: No Murmurs GI/Abdominal Exam: Normal Bowel Sounds, Soft, No Organomegaly, No Distention, No Mass, Tender (Point tenderness at uterine fundus) Extremities: Normal Inspection, Normal Range of Motion, Non-Tender, No Pedal Edema, Normal Capillary Refill Skin: Warm, Dry, Intact Neurological: No New Focal Deficit Psy/Mental Status: Alert, Normal Affect, Normal Mood - Problem List & Annotations (1) Encounter for induction of labor SNOMED Code(s): 165303527 Code(s): Z34.90 - ENCNTR FOR SUPRVSN OF NORMAL , UNSP, UNSP TRIMESTER Status: Acute Current Visit: Yes (2) Gestational thrombocytopenia SNOMED Code(s): 181584443 Code(s): O99.119 - OTH DIS OF BLD/BLD-FORM ORG/IMMUN MECHNSM COMP PREG,UNSP TRI; D69.6 - THROMBOCYTOPENIA, UNSPECIFIED Status: Acute Current Visit: Yes (3) LGSIL (low grade squamous intraepithelial dysplasia) SNOMED Code(s): 252600848 Code(s): STY9716 - Status: Acute Current Visit: Yes (4) (normal spontaneous vaginal delivery) SNOMED Code(s): 20515208, 328063771 Code(s): O80 - ENCOUNTER FOR FULL-TERM UNCOMPLICATED DELIVERY Status: Acute Current Visit: Yes - Problem List Review Problem List Initiated/Reviewed/Updated: Yes - Assessment Assessment:: 29yo @ 39w2d PPD 0 s/p , complicated by gestational th romobocytopenia. - Plan Plan:: Routine care - GBS negative - O positive, negative ab screen - Rubella immune - Heb B and C negative - Gestational thrombocytopenia - CBC at 0400; plts at 103, Hgb 11.3 - Discharge home at 24hrs, pending pediatric consult - Discharge instructions to be given at bedside - Pelvic rest x6 weeks - Follow-up in 6 weeks <Maryellen Ashraf - Last Filed: 05/25/20 08:41> - General Info Subjective Update: Agree with assessment - Patient Data Vital Signs - Most Recent: Last Vital Signs Temp 36.8 C 05/25/20 04:29 Pulse 63 05/25/20 04:29 Resp 17 05/25/20 04:29 BP 115/75 05/25/20 04:29 Pulse Ox 95 05/25/20 04:29 Lab Results - Last 24 Hours: Laboratory Results - last 24 hr 05/25/20 Range/Units 05:47 WBC 8.41 (4.0-11.0) K/uL RBC 3.21 L (4.30-5.90) M/uL Hgb 11.6 L (12.0-16.0) g/dL Hct 33.7 L (36.0-46.0) % MCV 105.0 H (80.0-98.0) fL MCH 36.1 H (27.0-32.0) pg MCHC 34.4 (31.0-37.0) g/dL RDW Std Deviation 46.1 (28.0-62.0) fl RDW Coeff of Vipul 13 (11.0-15.0) % Plt Count 103 L (150-400) K/uL MPV 10.50 (7.40-12.00) fL Med Orders - Current: Current Medications Acetaminophen (Tylenol Extra Strength) 500 mg PO Q4H PRN PRN Reason: Pain Acetaminophen (Tylenol Extra Strength) 1,000 mg PO Q4H PRN PRN Reason: Pain Last Admin: 05/25/20 02:13 Dose: 1,000 mg Documented by: Benzocaine/Menthol (Dermoplast Pain Relief 20%-0.5% [place]) 78 gm TOP ASDIRECTED PRN PRN Reason: Perineal Comfort Measure Last Admin: 05/24/20 13:26 Dose: 1 canister Documented by: Bisacodyl (Dulcolax) 10 mg RECTAL ONETIME PRN PRN Reason: Constipation Butorphanol Tartrate (Stadol) 1 mg IVPUSH Q1H PRN PRN Reason: Pain Calcium Carbonate/Glycine (Tums) 1,000 mg PO Q2HR PRN PRN Reason: Indigestion Last Admin: 05/24/20 05:17 Dose: 1,000 mg Documented by: Carboprost Tromethamine (Hemabate Ds) 250 mcg IM ASDIRECTED PRN PRN Reason: Post Hemorrhage Docusate Sodium (Colace) 100 mg PO BID PRN PRN Reason: Constipation Last Admin: 05/24/20 13:33 Dose: 100 mg Documented by: Emollient Ointment (Lansinoh Hpa) 0 gm TOP ASDIRECTED PRN PRN Reason: Sore Nipples Last Admin: 05/24/20 13:25 Dose: 1 tube Documented by: Oxytocin/Sodium Chloride (Oxytocin 30 Unit/500 Ml-Ns) 30 unit in 500 mls @ 999 mls/hr IV TITRATE [facility] Last Admin: 05/24/20 08:58 Dose: 999 mls/hr Documented by: Tranexamic Acid 1,000 mg/ (Sodium Chloride) 110 mls @ 660 mls/hr IV ONETIME PRN PRN Reason: Bleeding Oxytocin/Sodium Chloride (Oxytocin 30 Unit/500 Ml-Ns) 30 unit in 500 mls @ 2 mls/hr IV TITRATE [facility]; Protocol Lactated Ringer's (Ringers, Lactated) 1,000 mls @ 150 mls/hr IV ASDIRECTED MARCELA Last Admin: 05/24/20 07:50 Dose: 150 mls/hr Documented by: Ibuprofen (Motrin) 400 mg PO Q4H PRN PRN Reason: Pain Ibuprofen (Motrin) 800 mg PO Q6H PRN PRN Reason: Pain Last Admin: 05/25/20 02:12 Dose: 800 mg Documented by: Lidocaine HCl (Xylocaine 1%) 50 ml INJECT ONETIME PRN PRN Reason: Laceration repair Last Admin: 05/24/20 13:21 Dose: 50 ml Documented by: Methylergonovine Maleate (Methergine) 0.2 mg IM ASDIRECTED PRN PRN Reason: Post Hemorrhage Misoprostol (Cytotec) 200 mcg PO ONETIME PRN PRN Reason: Post Hemorrhage Misoprostol (Cytotec) 25 mcg VAG ONETIME PRN PRN Reason: Cervical Ripening Last Admin: 05/24/20 01:56 Dose: 25 mcg Documented by: Misoprostol (Cytotec) 25 mcg VAG Q4H PRN PRN Reason: Cervical Ripening Last Admin: 05/24/20 05:58 Dose: 25 mcg Documented by: Nalbuphine HCl (Nubain) 10 mg IVPUSH Q1H PRN PRN Reason: Pain (severe 7-10) Ondansetron HCl (Zofran) 4 mg IVPUSH Q6H PRN PRN Reason: Nausea/Vomiting Oxycodone HCl (Oxycodone) 5 mg PO Q2H PRN PRN Reason: Pain Sodium Chloride (Saline Flush) 10 ml FLUSH ASDIRECTED PRN PRN Reason: Keep Vein Open Sodium Chloride (Saline Flush) 2.5 ml FLUSH ASDIRECTED PRN PRN Reason: Keep Vein Open Sodium Chloride (Normal Saline) 10 ml IV ASDIRECTED PRN PRN Reason: IV Use Sterile Water (Sterile Water For Irrigation) 1,000 ml IRR ASDIRECTED PRN PRN Reason: delivery Terbutaline Sulfate (Brethine) 0.25 mg SUBCUT ASDIRECTED PRN PRN Reason: Tacysystole Witch Ewelina (Tucks) 1 pad TOP ASDIRECTED PRN PRN Reason: comfort care Last Admin: 05/24/20 13:25 Dose: 1 tub Documented by: Discontinued Medications Fentanyl (Sublimaze) Confirm Administered Dose 100 mcg .ROUTE .STK-MED ONE Stop: 05/24/20 08:15 Ropivacaine (Naropin 0.2%) Confirm Administered Dose 100 mls @ as directed .ROUTE .STK-MED ONE Stop: 05/24/20 08:15 Ropivacaine (Naropin 0.2%) Confirm Administered Dose 20 ml .ROUTE .STK-MED ONE Stop: 05/24/20 08:15 - Problem List & Annotations (1) Vaginal delivery SNOMED Code(s): 226778845 Code(s): O80 - ENCOUNTER FOR FULL-TERM UNCOMPLICATED DELIVERY Status: Acute Current Visit: Yes - Assessment Assessment:: agree - Plan Plan:: Agree Discharge home today
[2020-05-25] MEDS: Witch Hazel Medicated Pads 40/Jar TOP PRN ×2 (09:59→14:36)
[2020-05-25] MEDS: Benzocaine/Menthol 20%-0.5% Spray 78 GM Cannister TOP PRN (14:37)
== END 2020-05-25 15:20 | disposition home or self-care (01) | DRG 560 ==
LOC: MW.OBCHECK 00:10 → MW.OB 00:10 → MW.OBCHECK 00:15 → MW.OB 00:15 → OBSVTOIN 08:54 → MW.OB 13:59
PROVIDERS: ADMIT Obstetrics & Gynecology; ATTEND Obstetrics & Gynecology
PROC: 10E0XZZ Delivery of Products of Conception, External Approach (ICD-10-PCS; principal; 2020-05-24)
PROC: 0UQGXZZ Repair Vagina, External Approach (ICD-10-PCS; 2020-05-24)
PROC: 3E0P7VZ Introduction of Hormone into Female Reproductive, Via Natural or Artificial Opening (ICD-10-PCS; 2020-05-24)
PROC: 3E0R3BZ Introduction of Anesthetic Agent into Spinal Canal, Percutaneous Approach (ICD-10-PCS; 2020-05-24)
PROC: 00HU33Z Insertion of Infusion Device into Spinal Canal, Percutaneous Approach (ICD-10-PCS; 2020-05-24)
DX: O99.12 Other diseases of the blood and blood-forming organs and certain disorders involving the immune mechanism complicating childbirth (principal); D69.6 Thrombocytopenia, unspecified; Z3A.39 39 weeks gestation of pregnancy; Z37.0 Single live birth; O69.1XX0 Labor and delivery complicated by cord around neck, with compression, not applicable or unspecified; O71.4 Obstetric high vaginal laceration alone; Z11.59 Encounter for screening for other viral diseases
CPT/HCPCS: 01967; 36415; 59025; 59409; 85027; 86592; 86850; 86900; 86901; A9270-GY; J2001; J2590; J7120; U0002

== ENCOUNTER 2022-03-17 17:45 | Emergency (ER) | payer BC ==
[2022-03-17] MEDS ORDERED: Phenazopyridine 200 MG Tab PO ONE (18:47)
[2022-03-17] MEDS ORDERED: Ciprofloxacin 500 MG Tab PO ONE (18:47)
== END 2022-03-17 19:32 | disposition home or self-care (01) ==
LOC: MW.ED 17:45
DX: N12 Tubulo-interstitial nephritis, not specified as acute or chronic (principal); Z79.899 Other long term (current) drug therapy; Z88.2 Allergy status to sulfonamides
CPT/HCPCS: 81001; 81025; 87086; 99283; A9270; 87088; 87186

== ENCOUNTER 2022-03-20 16:19 | Emergency (ER) | payer BC ==
[2022-03-20] MEDS ORDERED: Sodium Chloride 0.9% 1,000 ML IV ONE (17:14)
[2022-03-20] MEDS ORDERED: cefTRIAXone 1 GM in Sodium Chloride 0.9% 50 ML IV ONE (17:38)
[2022-03-20 18:13] LABS: BLOOD UREA NITROGEN,BUN 9 mg/dL (7.0-18.0); CARBON DIOXIDE,CO2 25.8 mmol/L (21.0-32.0); CHLORIDE,CL 102 mmol/L (98-107); GLUCOSE RANDOM 103 mg/dL (74-106); LIPASE 63 U/L (73-393); POTASSIUM,K 3.6 mmol/L (3.5-5.1); SODIUM,NA 136 mmol/L (136-145)
== END 2022-03-20 19:00 | disposition home or self-care (01) ==
LOC: MW.ED 16:19
DX: N10 Acute pyelonephritis (principal); Z88.2 Allergy status to sulfonamides
CPT/HCPCS: 36415; 74176; 80053; 81001; 81025; 83605; 83690; 85025; 87086; 96365; 99284; J0696; J7030

== ENCOUNTER 2023-09-07 11:07 | Emergency (ER) | payer BC ==
[2023-09-07 12:52] LABS: CORONAVIRUS COVID-19 NAA NEGATIVE (NEGATIVE); INFLUENZA A NAA NEGATIVE (NEGATIVE); INFLUENZA B NAA NEGATIVE (NEGATIVE)
== END 2023-09-07 13:11 | disposition home or self-care (01) ==
LOC: MW.ED 11:07
DX: H66.92 Otitis media, unspecified, left ear (principal); Z88.2 Allergy status to sulfonamides
CPT/HCPCS: 0240U; 99283

== ENCOUNTER 2024-05-08 08:14 | Inpatient (IN) | payer BC ==
[2024-05-08] MEDS ORDERED: Sodium Chloride 0.9% 2.5 ML Syringe FLUSH PRN (08:20)
[2024-05-08] MEDS ORDERED: Tranexamic Acid IN NACL,ISO-OS 1,000 MG in Premix Bag 1 BAG IV PRN ×2 (08:20→19:43)
[2024-05-08] MEDS ORDERED: Lidocaine 1% 50 ML MDV INJECT PRN (08:20)
[2024-05-08] MEDS ORDERED: Ondansetron 4 MG/2 ML SDV IVPUSH PRN (08:20)
[2024-05-08] MEDS ORDERED: Sodium Chloride 0.9% 10 ML Syringe FLUSH PRN (08:20)
[2024-05-08] MEDS ORDERED: Misoprostol 200 MCG Tab PO PRN (08:20)
[2024-05-08] MEDS ORDERED: Sodium Chloride 0.9% 20 ML SDV IV PRN (08:20)
[2024-05-08] MEDS ORDERED: Water For Irrigation,Sterile 1,000 ML Container IRR PRN (08:20)
[2024-05-08] MEDS ORDERED: Methylergonovine 0.2 MG/1 ML Amp IM PRN ×2 (08:20→19:43)
[2024-05-08] MEDS ORDERED: Butorphanol 2 MG/ML SDV IVPUSH PRN (08:20)
[2024-05-08] MEDS ORDERED: Carboprost Tromethamine 250 MCG/1 mL Vial IM PRN (08:20)
[2024-05-08 08:29] LABS: HEMATOCRIT 36.1 % (37.0-47.0); HEMOGLOBIN 12.7 g/dL (12.0-16.0); MEAN CORPUSCULAR HEMOGLOBIN 36.1 pg (28.0-32.0); MEAN CORPUSCULAR HGB CONC 35.2 g/dL (32.0-36.0); MEAN CORPUSCULAR VOLUME 102.6 fL (83.0-99.0); MEAN PLATELET VOLUME 10.4 fL (9.4-12.3); PLATELET COUNT,PLT 130 K/uL (150-400); RED BLOOD CELL COUNT 3.52 M/uL (4.10-5.30); WHITE BLOOD CELL COUNT,WBC 6.45 K/uL (3.9-11.3)
[2024-05-08] MEDS ORDERED: Oxytocin/0.9 % Sodium Chloride 30 UNIT/500 ML BAG IV SCH (08:30)
[2024-05-08] MEDS ORDERED: ePHEDrine 50 MG/ML SDV IVPUSH PRN ×2 (08:34)
[2024-05-08] MEDS ORDERED: Phenylephrine HCl In 0.9% NaCl 1 MG/10 ML Syringe IVPUSH PRN (08:34)
[2024-05-08] MEDS ORDERED: Terbutaline 1 MG/ML SDV SUBCUT PRN (08:41)
[2024-05-08] MEDS ORDERED: dexmedeTOMIDine HCl 200 MCG/2 ML SDV EPIDUR SCH (08:45)
[2024-05-08] MEDS ORDERED: Misoprostol 50 MCG (1/2 of 100 MCG) Tab VAG ONE (09:24)
[2024-05-08] MEDS: Misoprostol 25 MCG (1/4 of 100 MCG) Tab VAG ONE (09:53)
[2024-05-08] MEDS: Calcium Carbonate 500 MG Tab.Chew PO PRN (10:00)
[2024-05-08] MEDS: Oxytocin/0.9 % Sodium Chloride 30 UNIT/500 ML BAG IV SCH (14:05)
[2024-05-08] MEDS: Lactated Ringers 1,000 ML IV SCH (14:05)
[2024-05-08] MEDS: Ropivacaine HCl/PF 400 MG in Premix Bag 1 BAG EPIDUR SCH (14:56)
[2024-05-08] MEDS: Citric Acid/Sodium Citrate Solution 30 ML Cup PO PRN (17:56)
[2024-05-08] MEDS ORDERED: Misoprostol 200 MCG Tab RECTAL PRN (19:43)
[2024-05-08 20:23] LABS: PH,UMBILICAL ARTERIAL 7.262 (7.18-7.38); PH,UMBILICAL VENOUS 7.329 (7.25-7.45)
[2024-05-08] MEDS: Witch Hazel Medicated Pads 40/Jar TOP PRN (21:26)
[2024-05-08] MEDS: Acetaminophen 500 MG Tab PO PRN (21:26)
[2024-05-08] MEDS: Benzocaine/Menthol 20%-0.5% Spray 78 GM Cannister TOP PRN (21:26)
[2024-05-09] MEDS: Ibuprofen 800 MG Tab PO PRN (00:25)
[2024-05-09] MEDS: Lanolin 100% Cream 7 GM Tube TOP PRN (00:26)
[2024-05-09 05:55] LABS: HEMATOCRIT 34.6 % (37.0-47.0); HEMOGLOBIN 12.1 g/dL (12.0-16.0)
[2024-05-09] MEDS: Docusate Sodium 100 MG Cap PO PRN (10:00)
[2024-05-09] MEDS: [UNRECOGNIZED DRUG - REMARK] PO SCH (15:55)
== END 2024-05-09 20:55 | disposition home or self-care (01) | DRG 560 ==
LOC: MW.OB 08:14 → OBSVTOIN 19:25 → MW.OB 19:25
PROVIDERS: ADMIT Obstetrics & Gynecology; ATTEND Obstetrics & Gynecology
PROC: 10E0XZZ Delivery of Products of Conception, External Approach (ICD-10-PCS; principal; 2024-05-08)
PROC: 3E0P7VZ Introduction of Hormone into Female Reproductive, Via Natural or Artificial Opening (ICD-10-PCS; 2024-05-08)
PROC: 3E033VJ Introduction of Other Hormone into Peripheral Vein, Percutaneous Approach (ICD-10-PCS; 2024-05-08)
PROC: 3E0R3BZ Introduction of Anesthetic Agent into Spinal Canal, Percutaneous Approach (ICD-10-PCS; 2024-05-08)
PROC: 00HU33Z Insertion of Infusion Device into Spinal Canal, Percutaneous Approach (ICD-10-PCS; 2024-05-08)
PROC: 10907ZC Drainage of Amniotic Fluid, Therapeutic from Products of Conception, Via Natural or Artificial Opening (ICD-10-PCS; 2024-05-08)
DX: O69.81X0 Labor and delivery complicated by cord around neck, without compression, not applicable or unspecified (principal); Z37.0 Single live birth; Z3A.39 39 weeks gestation of pregnancy
CPT/HCPCS: 36415; 51702; 59025; 59409; 59414; 82803; 85014; 85018; 85027; 86592; 86850; 86900; 86901; A9270-GY; J2590; J2795; J7120

== ENCOUNTER 2024-12-09 21:38 | Emergency (ER) | payer BC ==
[2024-12-09] MEDS ORDERED: Sodium Chloride 0.9% 10 ML Syringe FLUSH PRN (22:16)
[2024-12-09] MEDS ORDERED: Sodium Chloride 0.9% 20 ML SDV IV PRN (22:16)
[2024-12-09] MEDS ORDERED: Sodium Chloride 0.9% 2.5 ML Syringe FLUSH PRN (22:16)
[2024-12-09] MEDS ORDERED: Naloxone 0.4 MG/ML SDV IVPUSH PRN (22:17)
[2024-12-09 22:24] LABS: BASOPHILS ABSOLUTE AUTO 0.03 K/uL (0.00-0.20); BASOPHILS PERCENT AUTO 0.4 % (0.0-1.0); EOSINOPHILS ABSOLUTE AUTO 0.16 K/uL (0.00-0.45); EOSINOPHILS PERCENT AUTO 2.3 % (0.0-6.0); HEMATOCRIT 38.3 % (37.0-47.0); HEMOGLOBIN 13.3 g/dL (12.0-16.0); LYMPHOCYTES ABSOLUTE AUTO 3.02 K/uL (1.00-4.80); LYMPHOCYTES PERCENT AUTO 42.5 % (24.0-44.0); MEAN CORPUSCULAR HEMOGLOBIN 32.4 pg (28.0-32.0); MEAN CORPUSCULAR HGB CONC 34.7 g/dL (32.0-36.0); MEAN CORPUSCULAR VOLUME 93.4 fL (83.0-99.0); MEAN PLATELET VOLUME 9.8 fL (9.4-12.3); MONOCYTES ABSOLUTE AUTO 0.49 K/uL (0.00-0.80); MONOCYTES PERCENT AUTO 6.9 % (0.0-8.0); NEUTROPHILS PERCENT AUTO 47.9 % (41.0-71.0); PLATELET COUNT,PLT 171 K/uL (150-400)
[2024-12-09 22:34] LABS: A/G RATIO 1.3 (0.9-1.6); BILIRUBIN TOTAL 0.3 mg/dL (0.2-1.0); C-REACTIVE PROTEIN 0.05 mg/dL (<0.3); CALCIUM 9.3 mg/dL (8.5-10.1); CARBON DIOXIDE,CO2 27.6 mmol/L (21.0-32.0); CREATININE 0.9 mg/dL (0.6-1.0); EST CRCL DRUG DOSING (CG) 74.23 mL/min; POTASSIUM,K 3.7 mmol/L (3.5-5.1); PROTEIN TOTAL,TP 7.2 g/dL (6.4-8.2)
[2024-12-09] MEDS: Ketorolac 30 MG/ML SDV IVPUSH ONE (22:36)
[2024-12-09] MEDS: Morphine 2 MG/ML SYRINGE IVPUSH ONE (22:40)
[2024-12-09] MEDS: Ondansetron 4 MG/2 ML SDV IVPUSH ONE (22:40)
[2024-12-09 22:51] LABS: APPEARANCE,URINE SLT CLOUDY; BILIRUBIN,URINE NEGATIVE (NEGATIVE); COLOR,URINE YELLOW; GLUCOSE,URINE NEGATIVE (NEGATIVE); KETONES,URINE NEGATIVE (NEGATIVE); LEUKOCYTE ESTERASE,URINE NEGATIVE (NEGATIVE); NITRITE,URINE NEGATIVE (NEGATIVE); OCCULT BLOOD,URINE NEGATIVE (NEGATIVE); PROTEIN,URINE NEGATIVE (NEGATIVE)
== END 2024-12-09 23:56 | disposition home or self-care (01) ==
LOC: MW.ED 21:38
DX: R10.33 Periumbilical pain (principal); E66.9 Obesity, unspecified; Z75.8 Other problems related to medical facilities and other health care; Z88.2 Allergy status to sulfonamides; Z68.34 Body mass index [BMI] 34.0-34.9, adult
CPT/HCPCS: 36415; 80053; 81003; 81025; 83690; 85025; 85610; 86140; 96374; 99284; J1885; 99283